=== PATIENT | female | born 1960 | race Caucasian/White ===

== ENCOUNTER → 2024-01-11 | Outpatient (CLI) | payer OTHER | END | disposition home or self-care (01) | LOC: RAH 11:07 | PROVIDERS: ATTEND Physician Assistant | DX: Z13.6 Encounter for screening for cardiovascular disorders (principal) | CPT/HCPCS: 75571 ==

== ENCOUNTER → 2024-02-14 | Outpatient (CLI) | payer MEDICARE | END | disposition home or self-care (01) | LOC: SHCH 08:54 | PROVIDERS: ATTEND Internal Medicine Cardiovascular Disease | DX: R06.00 Dyspnea, unspecified (principal) | CPT/HCPCS: 93306 ==

== ENCOUNTER → 2024-03-27 | Outpatient (CLI) | payer MEDICARE ==
[~2024-03-27] MED LIST: metoPROLOL tartRATE 1 MG/ML 5ML VIAL IV ONE
== END | disposition home or self-care (01) ==
LOC: RAH 09:23
PROVIDERS: ATTEND Internal Medicine Cardiovascular Disease
DX: I25.119 Atherosclerotic heart disease of native coronary artery with unspecified angina pectoris (principal); I10 Essential (primary) hypertension
CPT/HCPCS: 75574; J3490

== ENCOUNTER 2024-05-24 06:25 | Day surgery (SDC) | payer MEDICARE ==
--- NOTE | 2024-05-22 10:52 | EKG ---
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
[2024-05-22 11:04] LABS: BASOPHILS # (AUTO) 0.05 K/uL (0.00-0.20); BASOPHILS % (AUTO) 0.5 % (0.0-5.0); EOSINOPHILS # (AUTO) 0.23 K/uL (0.00-0.70); EOSINOPHILS % (AUTO) 2.4 % (0.0-8.0); HEMATOCRIT 30.6 % (36-48); IMMATURE GRANULOCYTE ABSOLUTE 0.18 K/uL (0-1); LYMPHOCYTES % (AUTO) 10.9 % (21.0-51.0); MEAN CORPUSCULAR HEMOGLOBIN 29.2 pg (27.0-33.0); MEAN CORPUSCULAR HGB CONC 31.7 g/dL (32.0-36.0); MEAN CORPUSCULAR VOLUME 92.2 fL (79-99); MONOCYTES % (AUTO) 10.3 % (3.0-13.0); PLATELET COUNT (AUTO) 363 K/uL (130-400); RED BLOOD CELL COUNT(AUTO) 3.32 MIL/uL (4.00-5.50); RED CELL DISTRIBUTION WIDTH 13.4 % (11.0-15.5); WHITE BLOOD COUNT (AUTO) 9.4 K/uL (4.8-10.8)
[2024-05-22 11:08] LABS: CREATININE 0.9 mg/dL (0.5-1.0); POTASSIUM 3.3 mmol/L (3.5-5.1)
[2024-05-22 11:40] LABS: INR 1.07 (0.85-1.15); PROTHROMBIN TIME 11.5 SEC (9.6-11.6)
[2024-05-22 11:41] LABS: PARTIAL THROMBOPLASTIN TIME 28.8 SEC (26.3-35.5)
[2024-05-22 11:46] VITALS: BP 166/69; PULSE 83; RESP 17; TEMP 97.3
[2024-05-22 11:47] LABS: B-TYPE NATRIURETIC PEPTIDE 220 pg/mL (0-100)
--- NOTE | 2024-05-22 15:10 | HMCIMG ---
CHEST 1VW REASON: PREOP COMPARISON: 04/21/2024 FINDINGS: There is some patchy infiltrate peripherally in the left upper lobe which is new since prior exam. This could be early or mild pneumonia. Lungs are otherwise clear. Heart size is normal. There is no vascular congestion or pleural effusion. Bony thorax appears unremarkable. IMPRESSION: 1. Acute appearing patchy infiltrate present peripherally in the right upper lobe, this could be early or mild pneumonia.
--- NOTE | 2024-05-23 09:38 | NUR ---
REPORT REPORTED CBC, BMP AND CXR. ALSO INFORMED PT SAW SOFTWARE PROJECT LEAD AND RECEIVED INHALERS AND DOXYCYCLINE. OK TO PROCEED IF PT FEELS OK.
[~2024-05-24] VITALS: Ht 157.5 cm; Wt 62.0 kg
[2024-05-24] VITALS (15 sets, daily range): BP systolic 96–133; BP diastolic 45–93; PULSE 62–107; RESP 12–22; TEMP 97.4–98.8
[~2024-05-24 06:25] MED LIST changes: +ASPI-1197 PO; +ATOR40TA71 PO; +BUDE10.7 IH; +CLOP75TA32 PO; +DOXY100C61 PO; +ERGO500093 PO; +IPRA3AMP24 NEB; +LEVA15HF3 IH; +LEVO25CA4 PO; +METO-408 PO; +PANT40TA54 PO; -metoPROLOL tartRATE 1 MG/ML 5ML VIAL IV ONE
[2024-05-24] MEDS: 0.9%NACL 1000ML 1,000 ML IV SCH (07:11)
[2024-05-24] MEDS ORDERED: LIDOCAINE HCL 400MG/20ML VIAL ONE (08:16)
[2024-05-24] MEDS ORDERED: IOHEXOL 350 MG/ML 100ML INFUS..BTL IV ONE ×2 (08:17→09:49)
[2024-05-24] MEDS ORDERED: NITROGLYCERIN 50MG VIAL ONE (08:17)
[2024-05-24] MEDS ORDERED: VERAPAMIL HCL 2.5 MG/ML VIAL ONE (08:17)
[2024-05-24] MEDS ORDERED: HEParin-NS 1,000 UNIT/500 ML 1,000 ML IV ONE (08:17)
[2024-05-24] MEDS ORDERED: HEParin 10,000 UNIT/10ML (1,000 UNIT/ML) VIAL ONE (08:17)
[2024-05-24] MEDS ORDERED: FENTanyl CITRate PF 50 MCG/1 ML 2ML VIAL ONE (08:44)
[2024-05-24] MEDS ORDERED: MIDAZOLAM HCL 1 MG/ML 2ML VIAL ONE ×2 (08:44→09:11)
[2024-05-24] MEDS ORDERED: ondanSETRON 4MG INJ ONE ×2 (10:17→10:59)
[2024-05-24] MEDS ORDERED: HEParin-NS 1,000 UNIT/500 ML 500 ML IV ONE (10:27)
[2024-05-24] MEDS ORDERED: GLUCAGON 1MG KIT 1 MG ML IM PRN (11:00)
[2024-05-24] MEDS ORDERED: DEXTROSE 50%-WATER 50 ML DISP.SYRIN IV PRN (11:00)
[2024-05-24] MEDS ORDERED: 0.9%NACL 1000ML 1,000 ML IV SCH (11:00)
--- NOTE | 2024-05-24 11:20 | PRN ---
PROCEDURE REPORT DATE OF PROCEDURE: May 24, 2024 SHAPING MACHINE TENDER: [ Yuval carrillo MD] PROCEDURE PERFORMED: Conscious sedation Ultrasound guided right radial artery access Selective left coronary artery angiogram Selective right coronary artery angiogram IVUS of the left main and LAD Rotational atherectomy of the LAD IVF/shockwave lithotripsy of the LAD Status post successful IVUS guided, rotational atherectomy (1.5 mm), IVS (shockwave), and PTCA/PCI of the prox to mid LAD (3 x 30 mm maryanne Crockett drug- eluting stent) Status post successful PTCA of D2 (2 x 12 mm compliant balloon) TR band 13 enid over right radial artery INDICATION: Abnormal stress test/staged revascularization of the LAD DESCRIPTION OF PROCEDURE: After informed consent was obtained, the patient was prepped and draped in the usual sterile fashion. Access was obtained via the right radial artery under ultrasound guidance with 1st while pass puncture. A six [place] arterial sheath was placed in the right radial artery which was then aspirated and flushed and we provided a total of 2.5 mg as a radial cocktail. Given patient's coronary anatomy was already known at recent angiogram at [facility] decision was made to proceed with a six Korean XB three guide catheter which was used to advance over the wire and select engage the left main coronary artery followed by multiple angiographic images. We then advanced the Rota pro wire into the distal LAD under fluoroscopic guidance. We then began rotational atherectomy (1.5 mm burak) of the prox to mid LAD for two antegrade passes. At this time we advanced a FineCross microcatheter over the wire and exchanged the Rota wire with an 014 [place] guidewire. We then proceeded with IVUS imaging of the left main and LAD revealing no dissections or perforations and a distal vessel reference of 3 mm. We then performed IVL using a 3 x 12 mm shockwave balloon inflated to two and four ENID respectively within the prox and mid LAD. Following shockwave lithotripsy we noted significant ST elevations laterally and repeat angiogram revealed occlusion of the D2 branch with SON one flow. At this time we used a 014 run-through wire was advanced under fluoroscopic guidance into the 2nd diagonal artery. We then performed PTCA of the ostial and proximal D2 with a 2 x 12 mm compliant balloon to 12 ENID. We then performed kissing balloon inflation within the LAD and D2 using a 2.75 x 20 mm noncompliant balloon within the LAD and a 2 x 12 mm compliant balloon within the D2. Both balloons were inflated to 10 and 12 ENID respectively for 20 seconds. At this time we removed all wires and final angiogram revealed caodaism of SON three flow with no dissections or perforations. and guide catheters from the body. All catheters removed from the body and a TR band was placed over the right radial artery with patent hemostasis a 13 ENID. Patient tolerated procedure well with no postprocedure complication was transferred to labor delivery rn holding in stable condition FLUOROSCOPY TIME: 23.8 min CORONARY ANGIOGRAM: LEFT MAIN: Patent and 0% stenosis. Gives rise to LCx and LAD. LEFT ANTERIOR DESCENDING: Large vessel giving rise to two Diagonal branches. Heavily calcified with 60% proximal becoming 80% at the D2 bifurcation with a focal napkin ring lesion. D2 is large with 60% ostial stenosis LEFT CIRCUMFLEX: Large and gives rise to two OM branches. 0% stenosis. RIGHT CORONARY ARTERY: Not studied as patient's coronary anatomy on the RCA is known from recent angiogram HEMOSTASIS: TR band 12 enid over right radial artery INTERVENTIONS: Status post successful IVUS guided, rotational atherectomy (1.5 mm), IVS (shockwave), and PTCA/PCI of the prox to mid LAD (3 x 30 mm maryanne Crockett drug- eluting stent) Status post successful PTCA of the D2 (2 x 12 mm compliant balloon-kissing inflations) COMPLICATIONS: None FINDINGS: Normal coronary anatomy and severe prox-mid LAD disease ESTIMATED BLOOD LOSS: 5 cc RECOMMENDATIONS/INSTRUCTIONS: Aggressive risk factor modification along with dap for 6-12 months (aspirin 81 mg daily/Plavix 75 mg daily) High-intensity statin therapy and beta-hannah and tight glycemic control Follow up in Cardiology Clinic within 1-2 weeks post discharge. CONTRAST DELIVERED TO PATIENT (mL): 230cc YUVAL Velasco MD, MD May 24, 2024 11:20
[2024-05-25] MEDS ORDERED: ASPIRIN 81MG CHEW TAB PO SCH (09:00)
[2024-05-25] MEDS ORDERED: cloPIDOgrel 75MG TAB PO SCH (09:00)
== END 2024-05-24 15:05 | disposition home or self-care (01) ==
LOC: DAH 06:25
PROVIDERS: ATTEND Student in an Organized Health Care Education/Training Program
DX: I25.118 Atherosclerotic heart disease of native coronary artery with other forms of angina pectoris (principal); R43.9 Unspecified disturbances of smell and taste; E78.5 Hyperlipidemia, unspecified; J44.9 Chronic obstructive pulmonary disease, unspecified; I11.9 Hypertensive heart disease without heart failure; Z79.82 Long term (current) use of aspirin; Z79.01 Long term (current) use of anticoagulants; Z79.899 Other long term (current) drug therapy
CPT/HCPCS: 80048; 83880; 85025; 85610; 85730; 36415; 71045; 93005; 92978; 92979; 92972; 92921; 85347 ×3; C9602; C1769 ×4; C1725 ×3; C1874; C1894; A4649; C1761; C1887 ×2; C1724; C1753; J3010; J3490 ×3; J1644 ×3; J2250 ×2; J2405 ×2; Q9967 ×2; A4215; A4222; A4221; A4663; A4216; A4606; Q9965 ×3; A4223 ×3; 99156; 99157